=== PATIENT | female | born 1965 | race Caucasian/White ===

== ENCOUNTER 2024-06-04 13:20 | Emergency (ER) | payer OTHER, SELFPAY ==
[2024-06-04 13:52] VITALS: BP 149/89; PULSE 124; RESP 16; TEMP 37; O2SAT 98
[2024-06-04 14:43] LABS: EDCOVIDSCREEN Positive (Negative); EDINFLUASCREEN Negative (Negative); EDINFLUBSCREEN Negative (Negative)
--- NOTE | 2024-06-04 14:46 | ED_ITS ---
HPI - URI/Sore Throat General Chief Complaint: Upper Respiratory Infection Stated Complaint: HEADACHE/SORE THROAT/DRAINAGE/COUGH Time Seen by Provider: 06/04/24 14:46 Source: patient, RN notes reviewed and old records reviewed Mode of arrival: ambulatory Limitations: no limitations History of Present Illness HPI Narrative: 59-year-old female presents to the [facility] with complaints of headache, congestion, sore throat that started on Saturday, 2 days ago. Has taken Tylenol Patient reports that she took a COVID test yesterday however it was negative. Onset (ago): day(s) (2) Treatments prior to arrival: none Review of Systems Review of Systems: All systems reviewed & are unremarkable except as noted in HPI and below Constitutional: Constitutional: Reports no additional constitutional complaints ENT: Reports system reviewed and no additional complaints, except as documented Cardiovascular: Cardiovascular: Reports no additional cardiovascular complaints, Denies chest pain and Denies dyspnea Respiratory: Respiratory: Reports no additional respiratory complaints, Denies chest congestion, Denies cough and Denies dyspnea Musculoskeletal: Musculoskeletal: Reports no additional musculoskeletal complaints Integumentary/Breasts: Skin/Breast: Reports system reviewed and no additional complaints, except as docu PMFSH Comments At the time of my signature, I reviewed and agree with the nursing past medical, surgical, social, and family history. There is no relevant family history pertinent to the patient complaint. Exam Const: General: cooperative, healthy appearing, comfortable, no acute distress, well developed, alert and well nourished Nutritional Appearance: well nourished and obese Orientation/consciousness: patient oriented x3 Limitations: no limitations HENMT: Head: normal to inspection Eyes: General: appearance normal, both eyes and all related structures Alignment and Position: alignment normal Neck: Neck: normal visual inspection, full ROM, no lymphadenopathy and no meningeal signs Chest: Chest palpation & inspection: normal inspection of the chest Resp: Effort & Inspection: normal respiratory effort and able to speak in complete sentences Auscultation: clear to auscultation bilaterally, no crackles, no rales, no rhonchi and no wheezes Cardio: Rate: regular rate Skin: General skin exam: normal color and no rashes or lesions noted Neuro: General: patient oriented x3, gait normal, moves all extremities and no meningeal signs Cognition (Neuro): normal cognition Speech: normal speech Gait exam (Neuro): Normal gait present Extrem: General: normal to inspection, full ROM, capillary refill normal and normal gait Psych: Appearance: grossly normal and well kempt Mental Status: mental status grossly normal Speech and movement: Normal speech and movement present and Clear speech present Affect: normal affect Attitude: cooperative Course Course Level of Care: Express Care Visit Vital Signs Vital signs: Vital Signs Temperature 98.6 F 06/04/24 13:52 Pulse Rate 124 H 06/04/24 13:52 Respiratory Rate 16 06/04/24 13:52 Blood Pressure 149/89 H 06/04/24 13:52 Pulse Oximetry 98 06/04/24 13:52 Temperature 98.6 F 06/04/24 13:52 Pulse Rate 124 H 06/04/24 13:52 Respiratory Rate 16 06/04/24 13:52 Blood Pressure 149/89 H 06/04/24 13:52 Pulse Oximetry 98 06/04/24 13:52 Reviewed MDM - URI/Sore Throat MDM Narrative Medical decision making narrative: Patient sitting in exam room. Nontoxic, vitals are stable. Patient in no acute distress. Patient presents with 2 day history of viral symptoms. Patient is COVID positive Patient appropriate for outpatient treatment with close follow-up. Discussed signs and symptoms proceed to the emergency room which patient and significant other both verbalized understanding Discharge instructions reviewed with patient, as well as provided in writing per nursing staff. The instructions also include specific and strict return/GO TO THE ER as well as f/u information. All questions have been answered, and the patient deny any further questions with discharge and discharge plan. Some parts of this dictation were generated by voice recognition software and may contain typographical and/or grammatical inaccuracies. Differential Diagnosis Differential diagnosis: Likely upper respiratory infection, otitis media, sinusitis, viral infection and influenza Lab Data Labs: Lab Results 06/04/24 Range/Units 14:41 POC Influenza A Ag Negative (Negative) POC Influenza B Ag Negative (Negative) POC SARS CoV-2 Ag Positive (Negative) Reviewed Critical Care Time Critical Care Time Critical Care Time: No Discharge Plan Discharge Clinical Impression: COVID-19 Patient Disposition: Home, Self-Care Condition: Stable Instructions: Antibiotic Form, COVID-19 (Coronavirus Disease 2019) (ED), COVID- 19 and Chronic Health Conditions (ED) Additional Instructions: Your rapid COVID test was positive Your rapid flu test was negative Typically viral infections last 7-10 days, can linger for couple of weeks. It is very important to treat your symptoms. Drink plenty of water, Gatorade, Pedialyte, ice pops or Jell-O. -Alternate Tylenol and Motrin per package directions for fever or pain. You can alternate every 4 hours -Antihistamine medication such as Zyrtec/Claritin/Cecily during the day can help improve symptoms. -doing daily nasal irrigations can help relieve pressure your sinuses. Things like a Neti pot -Use Flonase twice a day for 5 days then daily to help reduce the inflammation and dry up your sinuses. -You can also use Mucinex. Be sure to drink plenty of water with this medication at least 8 ounces with every dose and it is important to drink 8 to 10 glasses of water per day. Water is a natural decongestant -Eat and drink things that are easy to swallow, like tea or soup, or popsicles. -Oral rinses such as: Salt water gargles and/or may use topical anesthetic (eg. Chloraseptic spray) or lozenges to relieve dryness or throat pain). -Frequent hand washing or hand workers[employer] is one of the best ways to prevent spread of infection. -Using a vaporizer or humidifier at night will also help thin secretions and help with coughing up phlegm. -Follow up with primary care provider in 7-10 days if condition is not improving - For new or worsening symptoms go directly to the nearest ER Patient Language: [place] Follow-up/Referrals: Kaushal,Lidia [Other] - 2 Weeks ([facility] follow up) Stand Alone Forms: Work/School Release IP Time of Disposition: 14:51
== END 2024-06-04 14:58 | disposition home or self-care (01) ==
PROVIDERS: Emergency Provider Nurse Practitioner
DX: U07.1 COVID-19 (principal); I10 Essential (primary) hypertension; J21.9 Acute bronchiolitis, unspecified; Z85.6 Personal history of leukemia
CPT/HCPCS: 87426; 87804; 99202; G0463

== ENCOUNTER 2024-10-09 11:06 | Outpatient (CLI) | payer OTHER, SELFPAY ==
--- NOTE | ~2024-10-09 | XR_ITS ---
XR abdomen/kub 1V 10/09/2024 11:21 INDICATION: Abdominal pain TECHNIQUE: KUB COMPARISON: No prior studies for comparison. FINDINGS: Bowel gas pattern is normal. There is levoscoliosis of the lumbar spine. There are surgical changes overlying the right upper abdomen. There is no evidence of free air, mass, organomegaly, asc ites or obstruction. No abnormal calculi are seen. The bones appear intact. IMPRESSION: 1: No acute abdominal abnormality identified. Reviewed, dictated and finalized at location A.
--- OUTSIDE RECORDS SUMMARY | 2024-10-09 11:12 | XMS_ITS | Data Portability ---
Author Organization [facility], [address] [place] [address] Neurology ([place]) Address [address] 4th [place] [address] Care Team Providers Care Air Intelligence Officer Name Role Phone BLAIRE VILLALOBOS Ordnance Technician ROSY IGLESIAS Primary Care Provider Assessment Encounter Date Assessment Date Assessment LastModified by Organization Details LastModified Time 04/30/2024 04/30/2024 1. A Pap smear was not performed. 2. Self breast exams were encouraged. 3. Calcium intake was encouraged. 4. Patient's mammogram is noted to be normal. 5. Patient will call with any vaginal bleeding. 6. Patient will recheck in 1 year. [email or web address] Not available 04/30/2024 15:07:15 05/14/2024 05/14/2024 Health maintenance: Encouraged healthy diet and exercise. Reviewed importance of prevention. Anxiety: We are going to start daily citalopram 10 mg and continue the alprazolam sparingly she is rarely using. She will reach out with any issues. GERD: Continue pantoprazole 40 mg. Follow up with any issues. Prediabetes: Had blood work through hypertension clinic with a hemoglobin A1c of 6.2. We will continue to monitor. The patient was encouraged to maintain a healthy lifestyle, was educated on measures to reach ideal body weight, to reduce BMI, educated on portion control, increasing vegetables and decreasing fried and fatty foods, and on the importance of regular exercise. Patient verbalized understanding. Follow up in 6-12 months or sooner with any questions or concerns. Patient understands and is agreeable to this plan. rozina [email or web address] Not available 05/14/2024 17:46:32 07/13/2024 07/13/2024 1. Healthy lifestyle was encouraged, including low glycemic/low processed food diet and regular exercise. Medications can be refilled as needed. 2. Hypertension is stable under the current medication regimen of diltiazem. No medication changes at this time. Recommend continuing to monitor home blood pressure readings. Request that they report changes in numbers or problems with medication. Discussed continued lifestyle modifications for weight and blood pressure. The patient does follow with the hypertension clinic. 3. Anxiety is stable on current medication regimen of as needed alprazolam. No medication changes at this time. Patient denies suicidal and/or homicidal ideation. Reviewed possible side effects of and expected benefits of medication. Should any changes arise, or dosing changes be requested, they are to contact us at that time. 4. GERD is stable on current medication regimen of pantoprazole. No medication changes at this time. Should symptoms worsen or fail to respond to medication, then I requested a progress report. Discussed continued lifestyle modifications of not eating two hours before bed, elevating the head of the bed two inches, and dietary changes for improved symptom control. 5. The patient is noted to be prediabetic. Her last A1c was 6.2. 6. The patient does have CLL. She continues to follow with Dr. Benjamin with hem-onc. 7. We discussed her headaches given the fact that she had new onset changing headaches starting after the age of 48 that are completely different from any other headaches. They started in January. This does qualify her for a CT scan especially given that she does have a history of CLL. We will go ahead and get this ordered and follow up as soon as the results are back. 8. Discussed precautions with the patient and gave them signs and symptoms to look out for and precautions on when to call the clinic or go to the emergency department. 9. The patient will follow up in early March or of course sooner as needed. 10. I personally spent a total of 45 minutes on the patient on this date of service including both pqvc-wh-mlyk and yev-ynox-di-face time excluding any separately reportable services. LORENZO [email or web address] Not available 07/14/2024 10:26:54 Plan of Treatment Reminders Order Date Submit Date Provider Last Modified By Organization Details Last Modified Time Details Appointments [facility] Patient 15.EST 2024 10:00A M Dr. Simon Benjamin Not available Not available Not available [facility] Patient 20.EST 2024 09:00A M Dr. Rosy Iglesias Not available Not available Not available Imaging 5.PRO 2025 11:15A M Radiology Not available Not available Not available [facility] Visit 15.EST 2025 11:30A M Dr. Blaire Villalobos Not available Not available Not available [facility] Patient 15.EST 2025 10:30A M Mary Jo Trevon Not available Not available Not available Lab urinalys is, dipstick 2023 024 [facility] [address] [place], [address], 04/30/2024 15:04:22 Referral None recorded . Procedures None recorded . Surgeries None recorded . Imaging CT, head, w/o contrast 2024 025 [facility], [address] [place] [address], [id number], 07/24/2024 12:19:19 MAMMO, screenin g, digital, bilatera l 2023 024 [id number] [facility], [address] [place] [address], [id number], 04/30/2024 15:04:22 Medication Orders citalopr am 10 mg tablet 2024 025 [id number], [address], [id number], 07/13/2024 11:26:44 Patient TargetsNo targets recorded. Patient InstructionsNo instructions recorded. Reason for Referral None Reported. Results Created Date Observation Date Name Description Value Unit Range Abnormal Flag Note LastModifiedBy Organization Detail LastModifiedTime 04/30/20 24 04/30/2024 urina lysis , dipst ick Protein Negati ve Not Available [facility] [address] [place] [address] 2, [place], [address], 04/30/2024 14:36:02 04/30/20 24 04/30/2024 urina lysis , dipst ick Glucose Negati ve Not Available [facility] [address] [place] [address], [place], [address], 04/30/2024 14:36:02 04/30/20 24 04/30/2024 urina lysis , dipst ick Nitrate Negati ve Not Available [facility] [address] [place] [address], [place], [address], 04/30/2024 14:36:02 04/30/20 24 04/30/2024 urina lysis , dipst ick Leukocyte Trace Not Available [facility] [address] [place] [address], [place], [address], 04/30/2024 14:36:02 07/30/19 25 07/30/2024 urina lysis , compl ete urinalysis, complete LOW LEVEL S OF HEMOG LOBIN IN ABSEN CE OF HEMAT URIA MAY NOT BE CLINI KAUR EVELYNI VENKATESH Vaughan Not Available [facility] [address] [place] [address], [address], 07/30/2024 10:49:19 07/30/19 25 07/30/2024 urina lysis , compl ete color YELLOW Not Available [facility] [address] [place] [address], [address], 07/30/2024 10:49:19 07/30/19 25 07/30/2024 urina lysis , compl ete clarity CLEAR Not Available [facility] [address] [place] [address], [id number], 07/30/2024 10:49:19 07/30/19 25 07/30/2024 urina lysis , compl ete pH 6.0 5.0-7. 5 Not Available [facility] [address] [place] [address], 36518, 07/30/2024 10:49:19 07/30/19 25 07/30/2024 urina lysis , compl ete specific gravity 1.012 1.000- 1.030 Not Available [facility] [address] [place] [address], 95356, 07/30/2024 10:49:19 07/30/19 25 07/30/2024 urina lysis , compl ete blood NEGATI VE negati ve Not Available [facility] [address] [place] [address], 74173, 07/30/2024 10:49:19 07/30/19 25 07/30/2024 urina lysis , compl ete bilirubin NEGATI VE negati ve Not Available [facility] [address] [place] [address], 91098, 07/30/2024 10:49:19 07/30/19 25 07/30/2024 urina lysis , compl ete urobilinogen 1.0 0.2-1. 0 Not Available [facility] [address] [place] [address], 56756, 07/30/2024 10:49:19 07/30/19 25 07/30/2024 urina lysis , compl ete ketone NEGATI VE negati ve Not Available [facility] [address] [place] [address], 21137, 07/30/2024 10:49:19 07/30/19 25 07/30/2024 urina lysis , compl ete glucose NEGATI VE negati ve Not Available [facility] [address] [place] [address], 67042, 07/30/2024 10:49:19 07/30/19 25 07/30/2024 urina lysis , compl ete protein NEGATI VE negati ve Not Available [facility] [address] [place] [address], 63907, 07/30/2024 10:49:19 07/30/19 25 07/30/2024 urina lysis , compl ete nitrite NEGATI VE negati ve Not Available [facility] [address] [place] [address], 35003, 07/30/2024 10:49:19 07/30/19 25 07/30/2024 urina lysis , compl ete leukocytes NEGATI VE negati ve Not Available [facility] [address] [place] [address], 37342, 07/30/2024 10:49:19 07/30/19 25 07/30/2024 urina lysis , compl ete RBC 0-2 0-2/hp f Not Available [facility] [address] [place] [address], 06078, 07/30/2024 10:49:19 07/30/19 25 07/30/2024 urina lysis , compl ete WBC 0-5 0-5/hp f Not Available [facility] [address] [place] [address], 75458, 07/30/2024 10:49:19 07/30/19 25 07/30/2024 urina lysis , compl ete squamous epithelial 0-2 0-10/h pf Not Available [facility] [address] [place] [address], 49619, 07/30/2024 10:49:19 07/30/19 25 07/30/2024 urina lysis , compl ete bacteria NONE SEEN none Not Available [facility] [address] [place] [address], 78910, 07/30/2024 10:49:19 07/30/19 25 07/30/2024 urina lysis , compl ete hyaline cast 0-2 0-2/lp f Not Available [facility] [address] [place] [address], 16569, 07/30/2024 10:49:19 07/30/19 25 07/31/2024 cultu re + sensi tivit y, urine urine culture and sens. MAHI L URINE After overn ight incub ation 50,00 0 CFU/m L Colleen l uroge nital dawn isola blue. After two night s incub ation >100, 000 CFU/m L Mixed uroge nital dawn , 3 or more colon y types indic ative of conta minat ion. Not Available [facility] [address] [place] [address], 404[address], 07/31/2024 10:29:19 07/30/19 25 07/30/2024 cultu re + sensi tivit y, urine urine culture and sens. PREL IM URINE After overn ight incub ation 50,00 0 CFU/m L Colleen l uroge nital dawn isola blue. Not Available [facility] [address] [place] [address], 47875, 07/30/2024 15:51:34 09/04/19 25 09/03/2024 CBC w/ auto diff CBC with differential Not Available [facility] [address] [place] [address], 44974, 09/03/2024 17:52:20 09/04/19 25 09/03/2024 CBC w/ auto diff WBC 20.4 K/uL 3.8-11 .2 high Not Available [facility] [address] [place] [address], 53024, 09/03/2024 17:52:20 09/04/19 25 09/03/2024 CBC w/ auto diff RBC 4.69 M/uL 3.92-5 .10 Not Available [facility] [address] [place] [address], 38881, 09/03/2024 17:52:20 09/04/19 25 09/03/2024 CBC w/ auto diff HGB 12.7 g/dL 11.8-1 5.3 Not Available [facility] [address] [place] [address], 25529, 09/03/2024 17:52:20 09/04/19 25 09/03/2024 CBC w/ auto diff HCT 39.3 % 36.5-4 4.8 Not Available [facility] [address] [place] [address], 10569, 09/03/2024 17:52:20 09/04/19 25 09/03/2024 CBC w/ auto diff MCV 83.8 fL 80.0-9 9.0 Not Available [facility] [address] [place] [address], 24743, 09/03/2024 17:52:20 09/04/19 25 09/03/2024 CBC w/ auto diff MCH 27.1 pg 25.5-3 3.6 Not Available [facility] [address] [place] [address], 45031, 09/03/2024 17:52:20 09/04/19 25 09/03/2024 CBC w/ auto diff MCHC 32.3 g/dL 32.0-3 6.0 Not Available [facility] [address] [place] [address], 08486, 09/03/2024 17:52:20 09/04/19 25 09/03/2024 CBC w/ auto diff RDW-SD 49.2 fL 35.1 - 46.3 high Not Available [facility] [address] [place] [address], 98110, 09/03/2024 17:52:20 09/04/19 25 09/03/2024 CBC w/ auto diff plt 201 K/uL 130-40 0 Not Available [facility] [address] [place] [address], 10017, 09/03/2024 17:52:20 09/04/19 25 09/03/2024 CBC w/ auto diff MPV 9.9 fL 9.3-12 .8 Not Available [facility] [address] [place] [address], 52980, 09/03/2024 17:52:20 09/04/19 25 09/03/2024 CBC w/ auto diff namita% 21.0 % not estab Not Available [facility] [address] [place] [address], 39585, 09/03/2024 17:52:20 09/04/19 25 09/03/2024 CBC w/ auto diff lym% 74.9 % not estab Not Available [facility] [address] [place] [address], 60398, 09/03/2024 17:52:20 09/04/19 25 09/03/2024 CBC w/ auto diff mono% 3.1 % not estab Not Available [facility] [address] [place] [address], 50453, 09/03/2024 17:52:20 09/04/19 25 09/03/2024 CBC w/ auto diff eos% 0.4 % not estab Not Available [facility] [address] [place] [address], 65813, 09/03/2024 17:52:20 09/04/19 25 09/03/2024 CBC w/ auto diff baso% 0.3 % not estab Not Available [facility] [address] [place] [address], 30058, 09/03/2024 17:52:20 09/04/19 25 09/03/2024 CBC w/ auto diff abs namita 4.3 K/uL 1.8-7. 5 Not Available [facility] [address] [place] [address], 38338, 09/03/2024 17:52:20 09/04/19 25 09/03/2024 CBC w/ auto diff abs lym 15.3 K/uL 1.1-3. 3 high Not Available [facility] [address] [place] [address], 40391, 09/03/2024 17:52:20 09/04/19 25 09/03/2024 CBC w/ auto diff abs mono 0.6 K/uL 0.1-1. 0 Not Available [facility] [address] [place] [address], 77064, 09/03/2024 17:52:20 09/04/19 25 09/03/2024 CBC w/ auto diff abs eos 0.1 K/uL 0.0-0. 7 Not Available [facility] [address] [place] [address], 18700, 09/03/2024 17:52:20 09/04/19 25 09/03/2024 CBC w/ auto diff abs baso 0.1 K/uL 0.0-0. 2 Not Available [facility] [address] [place] [address], 85422, 09/03/2024 17:52:20 09/04/19 25 09/03/2024 CBC w/ auto diff imm. gran % 0.3 % 0-5 Diffe renti al verif ied by scan Sligh t polyc hroma norma Hypog ranul ar neutr ophil s prese nt Not Available [facility] [address] [place] [address], 11910, 09/03/2024 17:52:20 09/04/19 25 09/03/2024 CBC w/ auto diff NRBC % 0.0 % 0.0-0. 2 Not Available [facility] [address] [place] [address], 23247, 09/03/2024 17:52:20 09/04/1909/03/2024 BMP, serum or plasm a basic met. panel Not Available [facility] [address] [place] [address], 72882, 09/03/2024 17:32:54 09/04/1909/03/2024 BMP, serum or plasm a glucose 138 mg/dL 70-100 high Not Available [facility] [address] [place] [address], 89567, 09/03/2024 17:32:54 09/04/1909/03/2024 BMP, serum or plasm a sodium 140 mmol/ L 136-14 6 Not Available [facility] [address] [place] [address], 17544, 09/03/2024 17:32:54 09/04/1909/03/2024 BMP, serum or plasm a potassium 4.5 mmol/ L 3.5-5. 1 Not Available [facility] [address] [place] [address], 32976, 09/03/2024 17:32:54 09/04/19 25 09/03/2024 BMP, serum or plasm a chloride 104 mmol/ L 98-110 Not Available [facility] [address] [place] [address], 48002, 09/03/2024 17:32:54 09/04/1909/03/2024 BMP, serum or plasm a CO2 26 mEq/L 20-32 Not Available [facility] [address] [place] [address], 08621, 09/03/2024 17:32:54 09/04/1909/03/2024 BMP, serum or plasm a anion gap 15 mmol/ L 10-22 Not Available [facility] [address] [place] [address], 93083, 09/03/2024 17:32:54 09/04/1909/03/2024 BMP, serum or plasm a calcium 8.9 mg/dL 8.4-10 .4 Not Available [facility] [address] [place] [address], 97665, 09/03/2024 17:32:54 09/04/1909/03/2024 BMP, serum or plasm a BUN 12 mg/dL 7-21 Not Available [facility] [address] [place] [address], 36856, 09/03/2024 17:32:54 09/04/19 25 09/03/2024 BMP, serum or plasm a creatinine 1.0 mg/dL 0.7-1. 3 Not Available [facility] [address] [place] [address], 84873, 09/03/2024 17:32:54 09/04/19 25 09/03/2024 BMP, serum or plasm a CKD-epi GFR 64 eGFR was calcu lated using the 2020 CKD-E PI equat ion. (Electrical Instrumentation Technician lexi Kidne y Disea se has an eGFR less than 60 mL/mi n/1.7 3mm for a perio d of three month s or more. ) This calcu latio n has not been valid ated for patie nt ages <18 or >90 years old. Not Available [facility] [address] [place] [address], 31822, 09/03/2024 17:32:54 09/04/19 25 09/03/2024 lipid panel , serum lipid profile Not Available [facility] [address] [place] [address], 51079, 09/03/2024 17:25:11 09/04/19 25 09/03/2024 lipid panel , serum cholesterol 104 mg/dL <25-20 0 Not Available [facility] [address] [place] [address], 13166, 09/03/2024 17:25:11 09/04/19 25 09/03/2024 lipid panel , serum triglyceride 171 mg/dL 15-200 Not Available [facility] [address] [place] [address], 33335, 09/03/2024 17:25:11 09/04/19 25 09/03/2024 lipid panel , serum HDL 28 mg/dL >40 low Not Available [facility] [address] [place] [address], 38167, 09/03/2024 17:25:11 09/04/1909/03/2024 lipid panel , serum LDL, calculated 42 mg/dL 5-100 Not Available [facility] [address] [place] [address], 64847, 09/03/2024 17:25:11 09/04/1909/03/2024 lipid panel , serum VLDL 34 mg/dL 1-40 Not Available [facility] [address] [place] [address], 17390, 09/03/2024 17:25:11 09/04/1909/03/2024 lipid panel , serum chol/HDL 3.7 ratio 0.0-4. 4 Not Available [facility] [address] [place] [address], 24918, 09/03/2024 17:25:11 09/04/1909/03/2024 uric acid, serum or plasm a uric acid- Not Available [facility] [address] [place] [address], 22463, 09/03/2024 17:21:23 09/04/1909/03/2024 uric acid, serum or plasm a uric acid 5.7 mg/dL 2.3-6. 6 Not Available [facility] [address] [place] [address], 80358, 09/03/2024 17:21:23 09/04/1909/03/2024 hemog lobin A1c + avera ge gluco se, QN, blood hemoglobin A1C Not Available [facility] [address] [place] [address], 25257, 09/03/2024 17:17:53 09/04/19 25 09/03/2024 hemog lobin A1c + avera ge gluco se, QN, blood HGB A1C 5.6 %_A1C 4.3 - 5.6 Not Available [facility] [address] [place] [address], 56478, 09/03/2024 17:17:53 09/04/19 25 09/03/2024 hemog lobin A1c + avera ge gluco se, QN, blood estimated average glucose 114 mg/dL Not Available [facility] [address] [place] [address], 15384, 09/03/2024 17:17:53 04/30/20 24 04/30/2024 MAMMO , scree coral, digit al, bilat eral [address] [address] Teleph one [phone] Name: JENNY TILLEY [id number] am Date: 2023 Age: 59Phys ician: MD WILFREDO, BLAIRE : 1964Ex aminat ion: MAMM BILATE RAL DIGITA L SCREEN ING EXAM: MAMM BILATE RAL DIGITA L SCREEN ING, MAMM SCREEN ING TOMOSY NTHESI S ACCESS ION: [id number], [id number] EXAM DATE: 2023 11:15 AM HISTOR Y: Screen ing. COMPAR RERE: Prior studie s dating back to 2019. DENSIT Y: The breast s are almost entire ly fat. FINDIN GS: 2D digita l compos ite views as well as 3D digita l tomosy nthesi s views were perfor med. There are no suspic ious masses , calcif icatio ns, or other findin gs within either breast . There has been no signif icant interv al change . IMPRES JERRY: There is no mammog raphic eviden ce of malign rosangela. ASSESS MENT: BI-RAD S 1: Negati ve. RECOMM ENDATI ON: 1. Screen ing Mammog dania bilate ral in 1 year COMMEN TS: The patien t will be entere d into an automa blue remind er system for a screen ing mammog dania in 1 year. The patien t has been or will be contac blue with the result s of this exam. Electr onical ly signed in [place]keon cribe by: RED Sandoval MD on: 4 1:11 PM cc: Page PAGE 1 of [facility] 1 [email or web address] [facility] [address] [place] [address], [address], 04/30/2024 14:22:27 07/25/19 25 07/24/2024 CT, head, w/o contr ast [facility] [address] [place] [address] Teleph one [phone] Name: Jenny Tilley 4827 Exam Date: 2024 Age: 59 Physic william: Duglas shafer MD, Rosy : 1964 Examin ation: CT HEAD WO EXAMIN ATION: CT head withou t INDICA TION: Headac hes for three months . COMPAR RERE: None. TECHNI QUE: Axial images were obtain ed throug h the brain withou t admini strati on of contra st. Oropeza l and sagitt al reform atted images were review ed. Automa blue exposu re contro l was used as a dose optimi zation techni que for this examin ation. FINDIN GS: There is no acute intrac ranial hemorr paulo, acute infarc tion, or mass lesion . There are mild patchy hypode nsitie s in the cerebr al white matter that are nonspe cific but are most likely due to chroni c microa ngiopa thy. The ventri cles, sulci, and cister ns are within normal limits for age. There are mild intrac ranial athero sclero tic calcif icatio ns. The imaged portio ns of the parana eber sinuse s are clear. The mastoi d air cells are clear. Bones and extrac ranial soft tissue s are unrema rkable . IMPRES JERRY: No acute intrac ranial abnorm ality. Electr onical ly signed in [place]ster cribe by: BARBARA BURDEN MD on:07/05 11:16 AM cc: Page PAGE 1 of [facility] ES 1 INTERFACE [facility] [address] [place] [address], [id number], 07/24/2024 12:19:19 Result Notes None recorded. Problems Name Problem SNOMED Code Status Onset Date Resolution Date Notes Provider Name and Address Organization Details Recorded Time Benign essential hypertension 3699935 Active 2023 [facility] [place] 4 10:57:19 Vitamin D deficiency 58982649 Active 2023 [facility] [place] 4 10:57:41 Hypercholester olemia 73924832 Active 2023 [facility] [place] 4 10:57:59 Body mass index 40+ - severely obese 406318462 Active 2023 [facility] [place] 4 10:59:22 Morbid obesity 298190167 Active 2023 [facility] [place] 4 10:59:47 Chronic lymphoid leukemia, disease 14337747 Active 2023 [facility] 4 18:04:27 Anxiety 96672096 Active 2023 Rosy Iglesias MD [address] [place] [address], [phone] 3, [facility] 5 11:35:08 Prediabetes 300088901 Active 2024 Rosy Iglesias MD [address] [place] [address], 55176-281 3, [facility] 5 11:35:16 Headache 50382960 Active 2024 Rosy Iglesias MD [address] [place] [address], 53048-353 3, [facility] 5 12:26:32 Recurrent urinary tract infection 881820703 Active 2024 Mary Jo Lester, SLAB PULLER, DISHROOM ATTENDANT [address] [place] [address], 48337-274 3, [facility] 5 12:25:11 Microscopic hematuria 716969687 Active 2024 Mary Jo Lester, SLAB PULLER, DISHROOM ATTENDANT [address] [place] [address], 56879-987 3, [facility] 5 12:25:08 Abdominal pain 90888573 Active 2024 Rosy Iglesias MD [address] [place] [address], 47629-639 3, [facility] 5 17:14:22 Gastroesophage al reflux disease 927102494 Active 2023 Rosy Iglesias MD [address] [place] [address], 06941-181 3, [facility] 5 11:35:06 Problem Notes None recorded. Procedures Surgical History Date Name Laterality Status Provider Name and Address Organization Details Recorded Time 04/30/20 24 Date of Last Mammogram completed [facility] 04/30/2024 14:35:17 08/12/19 21 Date of Last Pap Smear completed [facility] 04/30/2024 14:35:11 04/04/20 16 Colonoscopy completed [facility] 04/30/2024 14:35:29 Colonoscopy with biopsy completed Not Available Health Note 04/28/2024 14:03:29 Removal of gallbladder completed Not Available Health Note 04/28/2024 14:03:29 Imaging Results None recorded. Procedure Notes None recorded. Medical Equipment None Reported. Allergies Allergen ID Allergen Name Allergen Category Reaction Reaction Severity Criticality Documentation Date Start Date Code Code System Note Provider Name and Address Organization Details Recorded Time 539448 hydrochlo rothiazid e medicatio n nausea Not available Not available 06/03/20232010 5487 RxNorm React ion: Nause a; Not Available [facility] 22:30:44 601149 Substance with sulfonami de structure and antibacte rial mechanism of action (substanc e) medicatio n rash Not available Not available 06/03/20232010 45716 8003 SNOMED React ion: Rash; Not Available [facility] 22:30:47 845934 sulfameth oxazole / trimethop rim medicatio n rash Not available Not available 06/03/20232010 64031 RxNorm React ion: Rash; Not Available [facility] 22:30:47 Medications Name Sig Start Date Stop Date Status Note LastModified by Organization Details LastModified Time amoxicillin 500 mg capsule Take 1 capsule twice a day by oral route as directed for 7 days. 12/17 completed Not Available Not Available Not Available ofloxacin 0.3 % eye drops 12/17 completed Not Available Not Available Not Available citalopram 10 mg tablet Take 1 tablet every day by oral route for 90 days. 07/13 completed Not Available Not Available Not Available clobetasol 0.05 % topical cream 12/17 completed Not Available Not Available Not Available valsartan 80 mg tablet 12/17 completed Not Available Not Available Not Available diltiazem ER 360 mg capsule,24 hr,extended release TAKE 1 CAPSULE BY MOUTH EVERY EVENING BETWEEN 6 TO 8 PM active Not Available Not Available No t Available diltiazem ER 300 mg capsule,24 hr,extended release 12/17 completed Not Available Not Available Not Available trimethopri m 100 mg tablet 12/17 completed Not Available Not Available Not Available alprazolam 0.25 mg tablet Take 1 tablet every day by oral route as needed. active Not Available Not Available No t Available famotidine 20 mg tablet 12/17 completed Not Available Not Available Not Available cephalexin 500 mg capsule Take 1 capsule every 6 hours by oral route as directed for 7 days, for UTI. 12/17 completed Not Available Not Available Not Available pantoprazol e 40 mg tablet,carlos yed release Take 1 tablet by mouth 1-2 times a day 2024 active Not Available Not Available Not Avai lable verapamil ER (SR) 240 mg tablet,exte nded release 12/17 completed Not Available Not Available Not Available cefuroxime axetil 500 mg tablet TAKE 1 TABLET BY MOUTH TWICE DAILY FOR 7 DAYS 12/17 completed Not Available Not Available Not Available estradiol 0.01% (0.1 mg/gram) vaginal cream 12/17 completed Not Available Not Available Not Available fluticasone propionate 50 mcg/actuati on nasal spray,suspe nsion 12/17 completed Not Available Not Available Not Available calcipotrie ne 0.005 % topical ointment 12/17 completed Not Available Not Available Not Available Premarin 0.625 mg/gram vaginal cream 2023 active Not Available Not Available Not Avai lable Vitals Date Recorded Body height Body mass index (BMI) Body weight Heart rate Oxygen saturation Oxygen saturation in Arterial blood by Pulse oximetry Systolic blood pressure Diastolic blood pressure Provider Name and Address Organization Details Last Updated DateTime 5 163.83 cm 43.1 kg/m2 216089. 05 g 98 /min 98 % 98 % 128 mm[Hg] 72 mm[Hg] Leonarda Brandones [facility] 5 12:21:22 Date Recorded Body height Body mass index (BMI) Body weight Body temperature Respiratory rate Oxygen saturation Oxygen saturation in Arterial blood by Pulse oximetry Heart rate Systolic blood pressure Diastolic blood pressure Provider Name and Address Organization Details Last Updated DateTime 5 163.83 cm 43.4 kg/m2 544990. 24 g 97.3 [degF] 20 /min 97 % 97 % 81 /min 134 mm[Hg] 82 mm[Hg] Emily Connell [facility] 5 11:25:25 Date Recorded Body height Body mass index (BMI) Body weight Heart rate Oxygen saturation Oxygen saturation in Arterial blood by Pulse oximetry Systolic blood pressure Diastolic blood pressure Provider Name and Address Organization Details Last Updated DateTime 5 163.83 cm 43.5 kg/m2 427772. 68 g 104 /min 94 % 94 % 122 mm[Hg] 70 mm[Hg] Maddy Choi [facility] 5 12:04:47 Date Recorded Body height Body mass index (BMI) Body weight Body temperature Respiratory rate Oxygen saturation Oxygen saturation in Arterial blood by Pulse oximetry Heart rate Systolic blood pressure Diastolic blood pressure Provider Name and Address Organization Details Last Updated DateTime 5 163.83 cm 43.8 kg/m2 922146. 86 g 97.5 [degF] 20 /min 97 % 97 % 80 /min 142 mm[Hg] 78 mm[Hg] Emily Connell [facility] 5 17:06:06 Date Recorded Body height Body mass index (BMI) Body weight Systolic blood pressure Diastolic blood pressure Provider Name and Address Organization Details Last Updated DateTime 04/30/2024 163.83 cm 42.8 kg/m2 364477.9 5 g 124 mm[Hg] 70 mm[Hg] Merna Guerrero [facility] 4 14:41:27 Social History Question Answer Notes LastModified by [employer] Details LastModified Time Tobacco Smoking Status Never Smoker Not Available Health Note 04/28/2024 14:03:29 Do You Have An Advance Directive? No [email or web address] Information not available 04/28/2024 What Is Your Level Of Caffeine Consumption? Occasional [email or web address] Information not available 04/28/2024 How Many Times Per Week Do You Exercise? Less Than 1 Time Per Week [email or web address] Information not available 04/28/2024 What Was The Date Of Your Most Recent Tobacco Screening? 04/30/2024 [email or web address] Information not available 04/28/2024 What Is Your Relationship Status? [email or web address] Information not available 04/28/2024 Sex: Unknown Functional Status Question Answer Note LastModified by [employer] Details LastModified Time Do you use any illicit or recreational drugs? No [email or web address] Information not available 04/28/2024 What is your level of alcohol consumption? None [email or web address] Information not available 04/28/2024 Are you currently employed? Yes [email or web address] Information not available 04/28/2024 What is your occupation? [employer] [email or web address] Information not available 04/28/2024 What is your exercise level? None [email or web address] Information not available 04/28/2024 Mental Status None recorded. Family History Relationship Description Onset Age of this Age Resolved Age Notes LastModified by Organization Details LastModified Time Mother Family history of malignant neoplasm [email or web address] Not available 2023 14:03:28 Father Family history of malignant neoplasm [email or web address] Not available 2023 14:03:28 Sister Family history of malignant neoplasm [email or web address] Not available 2023 14:03:28 Maternal Grandmother Family history of malignant neoplasm [email or web address] Not available 2023 14:03:28 Medical History Condition Response Diabetes N Anxiety Disorder Y Bleeding Disorder N Attention-deficit Hyperactivity Disorder N High Blood Pressure Y Arthritis Y Hyperlipidemia N Cancer N Stroke N Thyroid Problems N Asthma N Depression N COPD N Anemia N Seizures N Heart Disease N Fibromyalgia N Osteoporosis N Kidney Disease N Gynecological History Statement/Question Response Hep C Screening 11/29/2022 Date of Last Pap Smear 08/11/2020 Date of Last Mammogram 04/30/2024 Colonoscopy 04/04/2016 Obstetrics History GPAL:G 5 P 0 0 0 1 Type Value Living 1 Total 5 Past Encounters Encounter ID Performer Location Encounter Start Date Encounter Closed Date Diagnosis/Indication Diagnosis SNOMED-CT Code Diagnosis ICD10 Code Diagnosis Note [id number] Simon Benjamin MD [address] Oncology/ Hematolog y ([place]) 15 [facility] [address] [address] 12/18/2023 11:26:18 12/19/2023 08:52:29 Chronic lymphoid leukemia, disease 51478366 C91.10 Additional diagnosis detail: CLL (chronic lymphocyti c leukemia) [id number] Blaire Villalobos MD [address] [facility] ([place]) [address] [place] [address] 2 [place] [address] 04/30/2024 14:22:36 04/30/2024 15:05:54 Female genitalia finding 299646976 Z01.419 Breast zhao plasm screening status 499589184 Z12.31 [id number] Lidia Easley MD [facility] ([place]) 15 [facility] [place] [address] 05/14/2024 12:08:31 05/14/2024 13:48:15 Anxiety 75559314 F41.9 Gastroesop hageal reflux disease 666346295 K21.9 Prediabetes 365428025 R7 3.03 History an d physical examination, annual for health maintenance 74665672 Z00.00 [id number] Rosy Iglesias MD [facility] ([place]) [facility] [place] [address] 07/13/2024 11:09:36 07/13/2024 12:16:20 History and physical examination, annual for health maintenance 04735419 Z00.00 First enco unter by subject 772291986 Z76.89 Benign ess ential hypertension 5360243 I10 Anxiety 75511706 F41.9 Prediabetes 358342119 R7 3.03 Chronic ly mphoid leukemia, disease 39516828 C91.[address] Sourav small Gastroesop hageal reflux disease 130006671 K21.9 Headache 14598338 R51.9 [id number] Mary Jo Lester, [employer]ER, DISHROOM ATTENDANT [address] ([place]) [address] [place] [address] 2 [place] [address] 08/03/2024 11:32:25 08/03/2024 15:00:40 Microscopic hematuria 865815259 R31.29 Recurrent urinary tract infection 402849805 N39.0 [id number] Rosy Iglesias MD [facility] ([place]) [address] [place] [address] 10/08/2024 16:47:37 10/08/2024 17:31:36 Abdominal pain 53061131 R10.9 Gastroesop hageal reflux disease 078314466 K21.9 Chronic ly mphoid leukemia, disease 59584429 C91.[address] Sourav small Health Concerns Section Related Observation LastModified by Organization Detai ls LastModified Time None Recorded Concern Status LastModified by Organization Details LastModified Time None Recorded Advance Directives Directive N: Payers Insurance Date Sequence Insurance Name Policy Number Policy Severino Covered Member ID Severino Member ID Guarantor Name 08/03/2024 1 [employer] [id number] Jenny Tilley [id number] MATT Tilley 10/05/2024 [address] [employer] [facility] [employer] [id number] Jenny S Tilley [id number] MATT Tilley Notes Date Note Type Note Provider Name and Address Organization Details Recorded Time 04/30/2024 text/html Patient is a 59-year-old 5 para 4 female who presents today for routine annual visit. The patient denies any history of postmenopausal bleeding. She had a normal mammogram in the office today. She does not have dense breast. The patient has a history of sigmoid resection due to diverticulitis with colonoscopy in 2016 and she scheduled to recheck in 10 years. The patient had a Pap smear in 2020 which is negative for high-risk types of HPV. The patient does have a history of pulmonary embolism in the past. The patient been for 41 years. They are sexually active about 4 times per year. They have moved to [place] because her son lives there and attends [employer] working on his [employer]. He would like to become a registered dietitian for sports team. The patient continues to work for [employer] and she works from home. The patient has no other questions or concerns. Blaire Villalobos MD [address] [place] [address], [phone], [facility] 04/30/2024 15:07:44 05/14/2024 text/html Jenny is here to day for an annual physical and med check. She has anxiety, currently just using low dose alprazolam sparingly throughout the year, but her anxiety has got a lot worse. She has a lot of healthcare anxiety since her CLL diagnosis in 2016. She has GERD, on pantoprazole. She does see the hypertension clinic and takes diltiazem. Her blood pressure is stable. She is up to date on all of her preventative screenings. Recently moved to [place]. She is worried about her anxiety, and she is having some headaches. Lidia Easley MD [address] [place] [address], [phone], [facility] 05/18/2024 08:56:55 07/13/2024 text/html NPVHer old PCP w as Dr. Easley with [facility].She would like to discuss the headaches she has been having. She gets them daily for around 2 weeks then she won't have any for a while. She has been taking tylenol which usually helps, but sometimes it does not. Did have neck surgery in 2015. Started in january. Last bout of them was in the last couple of weeks. Hasn't had on in a couple of days. Does have ocular migraines. Brandon other sx with the headache. -mammogram: 04/2024, sees Dr. Wilfredo galvan-PAP: 08/2020-colonoscopy: 03/2016, due in 2025 Rosy Iglesias MD [address] [place] [address], [phone], [facility] 07/14/2024 10:27:03 08/03/2024 text/html Chief Complaint: Jenny Tilley is a 59-year-old female who presents today for follow-up. She has a history of urinary tract infections and microscopic hematuria. She saw Dr. Montano back in July 2023. She had a cystoscopy and February 2023 that was negative.Urinalysis from July 29, 2024 was negative. Culture and sensitivity demonstrated greater than 100,000 mixed urogenital dawn. History of Present Illness: Today the patient states she is doing well. She has not had a urinary tract infection for a year. She is not really doing any urinary tract infection prevention. She denies dysuria or gross hematuria. She drinks a lot of water. She has never smoked. Her sister had bladder cancer and her mom and dad had lung cancer. Patient has some constipation and has had this since she had a bowel resection for diverticulitis. Review of SystemsPatient denies nausea, vomiting, shortness of breath, or chest pain Vitals, medical problems, medications, and allergies are noted below. Physical exam:Patient is alert and cooperative. In no acute distress. Skin warm and dry.Extraocular movements are intact.Head normocephalic.Normal hearingCardiac: Regular rate and rhythmTrachea midline.Respirations deep and regular.Abdomen soft. There is no suprapubic or flank tenderness.There is no peripheral edema.Gait is normal and without defect. Assessment & Plan: Microscopic hematuria, recurrent urinary tract infections - I reviewed recent UA C&S results with the patient. She will follow-up in the office in 1 year. She will contact us in the interim with any questions or concerns. She recently moved to [place] and established with a primary care provider in [place]. I told her we could order a urine sample if she thinks she has a urinary tract infection to be done down there. Mary Jo Lester APRN, DISHROOM ATTENDANT [address] [place] [address], [phone], [facility] 08/03/2024 22:58:38 OBGyn Episode No OBEpisode recorded.
== END 2024-10-09 11:07 | disposition home or self-care (01) ==
PROVIDERS: PCP Family Medicine; Visit Provider Family Medicine
DX: R10.9 Unspecified abdominal pain (principal)
CPT/HCPCS: 74018